=== PATIENT | female | born 1960 | race Caucasian/White ===

== ENCOUNTER 2023-05-07 12:36 | Outpatient (CLI) | payer MEDICARE, SELFPAY | END 2023-05-07 12:37 | disposition home or self-care (01) | LOC: ANHAUDASC 12:39 | PROVIDERS: PCP Family Medicine; Visit Provider Family Medicine | DX: H90.3 Sensorineural hearing loss, bilateral (principal) | CPT/HCPCS: 92557; 92567 ==